=== PATIENT | male | born 1955 | race Two or more races ===

== ENCOUNTER 2019-12-20 14:53 | Emergency (ER) | payer MEDICARE, OTHER ==
--- NOTE | 2019-12-20 15:54 | ER Document Report ---
ED Medical Screen (RME) - General Chief Complaint: Chest Pain Stated Complaint: CHEST PAIN Time Seen by Provider: 12/20/19 15:46 Information source: Patient Notes: This 64-year-old male who has left-sided chest pain radiating down his left arm he states he has no familial history Short of his brother who did have 3 MIs in the past with 98 years old again this patient is 64.
--- NOTE | 2019-12-20 16:45 | RADIOLOGY REPORT (SQ) ---
EXAM DESCRIPTION: CHEST SINGLE VIEW IMAGES COMPLETED DATE/TIME: 12/20/2019 4:13 pm REASON FOR STUDY: pain sp fall COMPARISON: None. EXAM PARAMETERS: NUMBER OF VIEWS: One view. TECHNIQUE: Single frontal radiographic view of the chest acquired. RADIATION DOSE: NA LIMITATIONS: None. FINDINGS: LUNGS AND PLEURA: No opacities, masses or pneumothorax. No pleural effusion. MEDIASTINUM AND HILAR STRUCTURES: No masses. Contour normal. HEART AND VASCULAR STRUCTURES: Heart normal in size. Normal vasculature. BONES: No acute findings. HARDWARE: None in the chest. OTHER: No other significant finding. IMPRESSION: NO ACUTE RADIOGRAPHIC FINDING IN THE CHEST. TECHNICAL DOCUMENTATION: JOB ID: [id number] 2010 [employer]- All Rights Reserved Reading location - IP/workstation name: [email or web address]
[2019-12-20 18:02] LABS: ABSOLUTE LYMPHOCYTES (AUTO) 1.7 10^3/uL (0.5-4.7); ABSOLUTE MONOCYTES (AUTO) 0.8 10^3/uL (0.1-1.4); ABSOLUTE NEUT (AUTO) 7.2 10^3/uL (1.7-8.2); BASOPHILS % (AUTO) 0.3 % (0-2); EOSINOPHILS % (AUTO) 0.5 % (0-6); HEMATOCRIT 43.7 % (37.9-51.0); HEMOGLOBIN 14.7 g/dL (13.5-17.0); LYMPHOCYTES % (AUTO) 17.7 % (13-45); MEAN CORPUSCULAR HEMOGLOBIN 31.5 pg (27.0-33.4); MEAN CORPUSCULAR HGB CONC 33.7 g/dL (32.0-36.0); MEAN CORPUSCULAR VOLUME 93 fl (80-97); MONOCYTES % (AUTO) 8.1 % (3-13); PLATELET COUNT 161 10^3/uL (150-450); RED BLOOD COUNT 4.67 10^6/uL (4.35-5.55); RED CELL DISTRIBUTION WIDTH 13.3 % (11.5-14.0); SEGMENTED NEUTROPHILS % (AUTO) 73.4 % (42-78); TOTAL CELLS COUNTED % (AUTO) 100 %; WHITE BLOOD COUNT 9.8 10^3/uL (4.0-10.5)
[2019-12-20 18:08] LABS: ALBUMIN 4.3 g/dL (3.5-5.0); ALKALINE PHOSPHATASE 70 U/L (38-126); ANION GAP 7 (5-19); ASPARTATE AMINO TRANSFERASE 24 U/L (17-59); BILIRUBIN,TOTAL 0.8 mg/dL (0.2-1.3); BLOOD UREA NITROGEN 18 mg/dL (7-20); CALCIUM 9.1 mg/dL (8.4-10.2); CARBON DIOXIDE 24 mmol/L (22-30); CHLORIDE 107 mmol/L (98-107); GLUCOSE 99 mg/dL (75-110); POTASSIUM 3.7 mmol/L (3.6-5.0); TOTAL PROTEIN 7.6 g/dL (6.3-8.2)
[2019-12-20 18:35] VITALS: BP 166/84
--- NOTE | 2019-12-20 19:47 | ER Document Report ---
ED General - General Chief Complaint: Chest Pain Stated Complaint: CHEST PAIN Time Seen by Provider: 12/20/19 15:46 Mode of Arrival: Ambulatory Information source: Patient, Relative - Notes: 12/20/19 15:45 - ED Nursing Note by HEIKE PEDROZA Num: [id number] : 1955 Patient Age: 64 pt arrives to ER today for c/o chest pain that started last night at around 3 am, pt states pain radiates into left shoulder. pt states he has been doing some strenuous work at home. pt denies SOB with chest pain denies nausea or vomiting, pt also c/o hands being very cold. pt states they drove here from [place] this morning. pt states he does have high blood pressure but states he does not take meds for it. Initialized on 12/20/19 15:45 - END OF NOTE 64-year-old male arrives with his with chief complaint of having left-sided chest pain referral to his left shoulder. He had driven 6 hours from [place] to our current location last night and at 0100 began to have his chest pain. He had gone to sleep and this is kept him awake until several hours after it occurred. He now upon my exam at 1930 he has no symptoms of chest pain and has full range of motion of his arms and legs. I discussed this case with Dr. Cash and he advises a second troponin. Patient reports he was cutting grass all day yesterday in the hot sun 98 degrees and also having a lot of sweating and dehydration as well as packing all the boxes for any kind of travel. Patient denies any nausea vomiting diaphoresis shortness of breath hemoptysis. - HPI Onset: Just prior to arrival Onset/Duration: Sudden, Better Quality of pain: Achy Severity: Moderate Pain Level: 2 Associated symptoms: Chest pain Exacerbated by: Movement Relieved by: Denies Similar symptoms previously: No Recently seen / treated by doctor: No - Related Data Allergies/Adverse Reactions: Penicillins Allergy (Verified 12/20/19 15:57) Past Medical History - General Information source: Patient - Social History Smoking Status: Never Smoker Cigarette use (# per day): No Chew tobacco use (# tins/day): No Smoking Education Provided: No Frequency of alcohol use: None Drug Abuse: None Lives with: Family Family History: Reviewed & Not Pertinent Patient has suicidal ideation: No Patient has homicidal ideation: No - Past Medical History Cardiac Medical History: Reports: Hx Hypertension Review of Systems - Review of Systems Constitutional: No symptoms reported EENT: No symptoms reported Cardiovascular: See HPI, Chest pain Respiratory: No symptoms reported Gastrointestinal: No symptoms reported Genitourinary: No symptoms reported Male Genitourinary: No symptoms reported Musculoskeletal: No symptoms reported Skin: No symptoms reported Hematologic/Lymphatic: No symptoms reported Neurological/Psychological: No symptoms reported Physical Exam - Vital signs Vitals: Pulse Resp BP Pulse Ox 63 18 166/84 H 99 12/20/19 18:34 12/20/19 18:34 12/20/19 18:34 12/20/19 18:34 - General General appearance: Appears well - HEENT Head: Normocephalic, Atraumatic Eyes: Normal Pupils: PERRL Mouth/Lips: Normal Pharynx: Normal Neck: Normal - Respiratory Respiratory status: No respiratory distress Chest status: Nontender Breath sounds: Normal Chest palpation: Normal - Cardiovascular Rhythm: Regular - Abdominal Inspection: Normal Distension: No distension Bowel sounds: Normal Tenderness: Nontender Organomegaly: No organomegaly - Rectal Prostate: Other - deferred - Genitourinary Scrotum: Other - deferred - Back Back: Normal - Extremities General upper extremity: Normal inspection General lower extremity: Normal inspection - Neurological Neuro grossly intact: Yes Cognition: Normal Orientation: AAOx4 Avery Coma Scale Eye Opening: Spontaneous [place] Coma Scale Verbal: Oriented Avery Coma Scale Motor: Obeys Commands [place] Coma Scale Total: 15 Speech: Normal Motor strength normal: LUE, RUE, LLE, RLE Sensory: Normal - Psychological Associated symptoms: Normal affect - Skin Skin Temperature: Warm Skin Moisture: Dry Course - Vital Signs Vital signs: Temp Pulse Resp BP Pulse Ox 63 18 166/84 H 99 12/20/19 18:34 12/20/19 18:34 12/20/19 18:34 12/20/19 18:34 - Laboratory Result Diagrams: 12/20/19 17:16 12/20/19 17:16 Critical Care Note - Critical Care Note Comments: After spoke with Dr. Resendiz, patient and his left "because they have to go to [employer] and get to their house." I advised Dr. Resendiz of this around 1999 Discharge - Discharge Clinical Impression: Hypertension Qualifiers: Hypertension type: unspecified Qualified Code(s): I10 - Essential (primary) hypertension Condition: Good Disposition: AGAINST MEDICAL ADVICE Additional Instructions: Take 1 baby aspirin 81 mg daily and follow-up with Dr. Resendiz fiber picker here in town take medicines as directed encourage fluids avoid bending twisting or lifting until seen by Dr. Resendiz and return to ER if symptoms persist or worsen. Referrals: ALEX RESENDIZ MD [ACTIVE PROVISIONAL STAFF] - Follow up as needed
--- NOTE | 2019-12-20 20:07 | EKG REPORT ---
SEVERITY:- NORMAL ECG - SINUS RHYTHM : Confirmed by: Vivi Lange MD 20-Dec-2019 20:06:17
== END 2019-12-20 20:00 | disposition left against medical advice (07) ==
LOC: ER 14:53
DX: I10 Essential (primary) hypertension (principal); R07.9 Chest pain, unspecified; M25.512 Pain in left shoulder; Z88.0 Allergy status to penicillin
CPT/HCPCS: 36415; 71045; 80053; 84484; 85025; 93005; 93010; 99284